=== PATIENT | female | born 1945 | race Two or more races ===

== ENCOUNTER 2019-01-01 09:53 | Outpatient (CLI) | payer OTHER | END 2019-01-01 10:05 | disposition home or self-care (01) | LOC: TOM 09:53 | DX: N32.1 Vesicointestinal fistula (principal) ==

== ENCOUNTER 2019-04-27 08:27 | Outpatient (CLI) | payer OTHER | END 2019-04-27 08:32 | disposition home or self-care (01) | LOC: TOM 08:27 | DX: C74.01 Malignant neoplasm of cortex of right adrenal gland (principal) ==

== ENCOUNTER 2019-10-08 10:05 | Day surgery (SDC) | payer OTHER ==
[~2019-10-08 10:05] MED LIST: HORIZANT300 MG PO; PROTONIX20 MG PO; TENORMIN25 MG PO; ZOCOR20 MG PO
== END 2019-10-08 16:50 | disposition home or self-care (01) ==
LOC: CIR.AMB 10:05
DX: N30.20 Other chronic cystitis without hematuria (principal)

== ENCOUNTER 2019-10-26 13:30 | Outpatient (CLI) | payer OTHER | END 2019-10-26 13:46 | disposition home or self-care (01) | LOC: EKG 13:30 | DX: K57.30 Diverticulosis of large intestine without perforation or abscess without bleeding (principal); K63.2 Fistula of intestine; R19.4 Change in bowel habit; I10 Essential (primary) hypertension; Z01.818 Encounter for other preprocedural examination ==

== ENCOUNTER 2019-10-29 10:14 | Inpatient (IN) | payer OTHER ==
[~2019-10-29] VITALS: Ht 162.6 cm; Wt 74.8 kg
[2019-11-05] MEDS ORDERED: PANTOPRAZOLE SO40 MG PO (09:00)
[2019-11-08] MEDS ORDERED: HYOSCYAMINE0.125 M1 SL (13:28)
[2019-11-08] MEDS ORDERED: OXYC1TAB9 PO (13:28)
== END 2019-11-08 14:17 | disposition home or self-care (01) | DRG 330 ==
LOC: O/R 11-05 06:22 → SURH 11-05 06:22
PROVIDERS: Urology; ADMIT Surgery
PROC: 0DBN4ZZ Excision of Sigmoid Colon, Percutaneous Endoscopic Approach (ICD-10-PCS; 2019-11-05)
PROC: 0WUF47Z Supplement Abdominal Wall with Autologous Tissue Substitute, Percutaneous Endoscopic Approach (ICD-10-PCS; 2019-11-05)
PROC: 4A19X1Z Monitoring of Respiratory Capacity, External Approach (ICD-10-PCS; 2019-11-05)
PROC: 3E0F7GC Introduction of Other Therapeutic Substance into Respiratory Tract, Via Natural or Artificial Opening (ICD-10-PCS; 2019-11-05)
PROC: 0TQB4ZZ Repair Bladder, Percutaneous Endoscopic Approach (ICD-10-PCS; principal; 2019-11-05 12:30)
PROC: 0DBP4ZZ Excision of Rectum, Percutaneous Endoscopic Approach (ICD-10-PCS; 2019-11-05 12:30)
DX: K57.30 Diverticulosis of large intestine without perforation or abscess without bleeding (principal); N32.1 Vesicointestinal fistula

== ENCOUNTER 2019-10-30 09:35 | Day surgery (SDC) | payer OTHER | END 2019-10-30 14:44 | disposition home or self-care (01) | LOC: AMB-ENDOS 09:35 → O/R 11-05 07:00 → EDSTATUS 11-05 07:00 | DX: K62.89 Other specified diseases of anus and rectum (principal) ==

== ENCOUNTER 2019-11-14 10:26 | Outpatient (CLI) | payer OTHER ==
[~2019-11-14 10:26] MED LIST changes: +HYOSCYAMINE0.125 M1 SL; +OXYC1TAB9 PO; +PANTOPRAZOLE SO40 MG PO
== END 2019-11-14 10:32 | disposition home or self-care (01) ==
LOC: RAD 10:26
DX: R31.0 Gross hematuria (principal)
CPT/HCPCS: 51600; 74430; Q9958